=== PATIENT | male | born 1965 | race Caucasian/White ===

== ENCOUNTER 2025-02-14 08:35 | Day surgery (SDC) | payer OTHER, SELFPAY ==
[2025-02-14 08:50] VITALS: BMI 24.7
--- NOTE | 2025-02-14 08:52 | P.ANESASSM_ITS ---
Pre-Anesthetic Assessment Height/Weight: Height 1.88 m Weight 87.543 kg Preop Diagnosis: abd pain Operation Date: 02/14/25 09:45 Proposed Procedures p EGD EGD with Biopsy [id number](Not Applicable) - Alfonso Rey MD Was Beta Arias taken within 24 hours: N/A Was Clonidine taken within 24 hours: N/A Last Intake: 21:00 Social Tobacco 1 pack(s) per day 38 pack years Exam oriented x 3 Airway Submandibular: within normal limits Cervical ROM: within normal limits Mallampati: Class II Dentition: chipped History/ROS No significant history except as noted Pulmonary None reported CV/HEM None reported None reported Hepatic None reported GI Gastroesophageal Reflux Disease Metabolic None reported Musc/skel None reported Neuropsych None reported Anesthetic Plan ASA status: 2 Anesthesia: Anesthesia Evaluation Risk of > 500 ml blood loss (7ml/kg in children): No Medications/Allergies Home Medications ?Medication ?Instructions ?Recorded ?Confirmed ?Last Taken ?Type pantoprazole 40 mg tablet,delayed 40 mg PO BID 5 02/08/25 02/13/25 History release sucralfate 1 gram tablet 1 g PO QID 01/16/25 02/08/25 02/13/25 History Allergies Allergy/AdvReac Type Severity Reaction Status Date / Time meperidine (From Demerol) Allergy rash Verified 02/14/25 08:49 morphine Allergy rash Verified 02/14/25 08:49 [facility] Anesthesia Family History (Updated 01/16/25 @ 08:06 by TIMA Oliveira) Father Acid reflux Social History Smoking and tobacco/nicotine status: current every day tobacco/nicotine user
[2025-02-14 08:54] VITALS: BP 108/74; PULSE 63; RESP 16; TEMP 36.3; O2SAT 96
--- NOTE | 2025-02-14 09:34 | W.PM.OPSUD ---
Surgery/Procedure H&P Update DATE OF PROCEDURE: February 14, 2025 DATE H&P PERFORMED: 01/16/25 H&P UPDATE INFORMATION: I have reviewed H&P completed within last 30 days, I have examined patient prior to procedure, No changes to prior documentation and Risks and benefits of the procedure reviewed PREOP DIAGNOSIS: abd pain PLANNED PROCEDURE: Operation Date: 02/14/25 09:45 Proposed Procedures p EGD EGD with Biopsy [id number](Not Applicable) - Alfonso Rey MD
[2025-02-14 09:49] VITALS: BP 108/71; PULSE 64; RESP 16; TEMP 36.3; O2SAT 100
[2025-02-14 09:56] VITALS: BP 110/71; PULSE 63; RESP 16; O2SAT 99
[2025-02-14 10:06] VITALS: BP 126/82; PULSE 63; RESP 16; O2SAT 98
--- NOTE | 2025-02-14 10:24 | ANE.PACU2 ---
Inpatient post-anesthesia follow up: Airway intact: Yes Vital signs: Temperature 97.4 F Pulse Rate 63 Respiratory Rate 16 Blood Pressure 126/82 Pulse Oximetry 98 Oxygen Delivery Me thod Room Air Oxygen Flow Rate 5 Fraction of Inspir ed Oxygen Hydration adequate: Yes Nausea and vomiting: No Pain level: 1 Mental status: Baseline
== END 2025-02-14 10:24 | disposition home or self-care (01) ==
PROVIDERS: PCP Nurse Practitioner Family; Visit Provider Student in an Organized Health Care Education/Training Program
PROC: 0DJ08ZZ Inspection of Upper Intestinal Tract, Via Natural or Artificial Opening Endoscopic (ICD-10-PCS; principal; 2025-02-14 09:45)
DX: R12 Heartburn (principal); K29.70 Gastritis, unspecified, without bleeding; K21.9 Gastro-esophageal reflux disease without esophagitis; F17.200 Nicotine dependence, unspecified, uncomplicated
CPT/HCPCS: 43239; 88305; J2704; J7030